=== PATIENT | male | born 1960 | race American Indian/Alaskan Native ===

== ENCOUNTER 2017-11-01 01:14 | Emergency (ER) | payer SELFPAY ==
[2017-11-01] MEDS ORDERED: BSS ONE (03:11)
[2017-11-01] MEDS ORDERED: BSS OU ONE (03:18)
[2017-11-01] MEDS ORDERED: TETRACAINE 0.5% OU PRN (04:36)
[2017-11-01] MEDS ORDERED: FUL-GLO OP ONE (04:36)
[2017-11-01] MEDS ORDERED: TETRACAINE 0.5% OU ONE (04:38)
[2017-11-01] MEDS ORDERED: BOOSTRIX IM ONE (05:18)
--- NOTE | 2017-11-01 05:21 | Emergency Department Report ---
Eye Injury/Foreign Body - HPI Duration: 1 Day Eye Location: Left Tetanus Status: Not up to Date Eye Symptoms: Eye Pain: Yes, Blurred Vision: Yes, Eye Redness: Yes, Grinding/ Hammering Metal: No, Used Eye Protection: No, Contact Lens Use: No, Recalls Injury: No, Photophobia: No Other History: This is a 57-year-old nontoxic, well nourished in appearance, no acute signs of distress presents to the ED with c/o of left eye redness and pain 1 day. Patient stated he was working with sheet [email or web address] and a piece of sheet rock landed on his left eye and patient started to itch her. They stated pain has increased. Patient denies any visual changes, blurry vision, fever, chills, nausea, vomiting, headache, stiff neck, numbness or tingling. Patient denies any drug allergies or significant past medical history. Patient denies being up-to-date with tetanus. ED Review of Systems ROS: Stated complaint: EYE PAIN Other details as noted in HPI Constitutional: denies: chills, fever Eyes: eye pain. denies: eye discharge, vision change ENT: denies: ear pain, throat pain Respiratory: denies: cough, shortness of breath, wheezing Cardiovascular: denies: chest pain, palpitations Endocrine: no symptoms reported Gastrointestinal: denies: abdominal pain, nausea, diarrhea Genitourinary: denies: urgency, dysuria Musculoskeletal: denies: back pain, joint swelling, arthralgia Skin: denies: rash, lesions Neurological: denies: headache, weakness, paresthesias Psychiatric: denies: anxiety, depression Hematological/Lymphatic: denies: easy bleeding, easy bruising ED Past Medical Hx - Past Medical History Previous Medical History?: Yes Hx Hypertension: Yes - Surgical History Past Surgical History?: Yes Additional Surgical History: hernia - Social History Smoking Status: Former Smoker Substance Use Type: Alcohol - Medications Home Medications: Home Medications Medication Instructions Recorded Confirmed Last Taken Type Ciprofloxacin 0.3% (Nf) 2 drops OD TID #1 drops 11/01/17 Unknown Rx [Ciprofloxacin OPTH] Eye Injury Exam - Exam General: Vital signs noted. No distress. Alert and acting appropriately. GENERAL: The patient is a well-developed, well-nourished in no apparent distress. Patient is alert and acting appropriately for age. Alert and oriented 3, no apparent distress, normal gait, atraumatic. HEENT: Head is normocephalic and atraumatic. PERRL, Extraocular muscles are intact. Pupils are equal, round, and reactive to light and accommodation. Nares appeared normal. Mouth is well hydrated and without lesions. Mucous membranes are moist. Posterior pharynx clear of any exudate or lesions. Mouth is well hydrated and without lesions. Tonsils not erythematous or swollen. Uvula midline. Tongue elevated. Mucous members are moist. Posterior pharynx clear, no exudate or lesions. Patent airways. NECK: Supple. No carotid bruits. No lymphadenopathy or thyromegaly.nontender. No meningitic signs are noted. LUNGS: Clear to auscultation. Non labor breathing. No intercostal retractions. Symmetrical with respiration, no wheezing, no rales, or crackles. HEART: Regular rate and rhythm without murmur, rubs or gallops. No reproducible. S1, S2 present, regular rate and rhythm without murmur, no rubs, no gallops. ABDOMEN: Soft, nontender, and nondistended. Positive bowel sounds. No hepatosplenomegaly was noted. No guarding or rebound tenderness, negative epigastric bruit. Negative psoas sign, negative wright sign, negative McBurneys sign EXTREMITIES: Without any cyanosis, clubbing, rash, lesions or edema. Peripheral pulses intact. Capillary refill less than 2 seconds. Full range of motion bilaterally. NEUROLOGIC: Cranial nerves II through XII are grossly intact. Alert and oriented x 3. Normal gait. Symmetrical strength and sensation. Reflexes 2+ throughout. Cerebellar testing normal. GCS score of 15. PSYCHIATRIC: Normal affect with no suicidal or homicidal ideations. - Visual Acuity Left Vision Acuity Degree: 20/30 Eye Exam: Neither Injection, Neither Chemosis, Neither Abnormal Pupil, Neither EOMI, Neither Eye Foreign Body, Neither Lid Foreign Body, Neither Mucous Discharge, Neither Purulent Discharge, Neither Cell/Flare (slit lamp), Neither Corneal Edema, Neither Photophobia Exam: Under Fontenot lamp, I used fluorescein and tetracaine to examine cornea for corneal abrasion or foreign body. There is slight corneal abrasion to the lateral cornea. No foreign body present. Right Vision Acuity Degree: 20/25 Bilateral Vision Acuity Degree: 20/25 ED Course Vital Signs 11/01/17 03:01 Temperature 97.7 F Pulse Rate 78 Respiratory 16 Rate Blood Pressure 193/108 O2 Sat by Pulse 98 Oximetry - Reevaluation(s) Reevaluation #1: 11/01/17 05:23 Patient is speaking in full sentences with no signs of distress noted. Critical care attestation.: If time is entered above; I have spent that time in minutes in the direct care of this critically ill patient, excluding procedure time. ED Disposition Clinical Impression: Corneal abrasion Qualifiers: Encounter type: initial encounter Laterality: left Qualified Code(s): S05.02XA - Injury of conjunctiva and corneal abrasion without foreign body, left eye, initial encounter Disposition: - TO HOME OR SELFCARE Is pt being admited?: No Does the pt Need Aspirin: No Condition: Stable Instructions: Corneal Abrasion (ED), Ciprofloxacin (Into the eye) Additional Instructions: Follow-up with a seat installer doctor in 24 hours or if symptoms worsen and continue return to emergency room as soon as possible. Prescriptions: Ciprofloxacin 0.3% (Nf) [Ciprofloxacin OPTH] 2 drops OD TID #1 drops Referrals: [facility] [Outside] - 3-5 Days PRIMARY CARE, [Referring] - 3-5 Days MICHELLE LE MD [Staff Physician] - 24 Hours Forms: Work/School Release Form(ED)
[2017-11-01] MEDS ORDERED: CATAPRES PO ONE (05:31)
[2017-11-01 06:29] VITALS: BP 150/87
== END 2017-11-01 06:34 | disposition home or self-care (01) ==
LOC: ED 01:14
DX: S05.02XA Injury of conjunctiva and corneal abrasion without foreign body, left eye, initial encounter (principal); I10 Essential (primary) hypertension; Z87.891 Personal history of nicotine dependence; W20.8XXA Other cause of strike by thrown, projected or falling object, initial encounter; Y93.89 Activity, other specified; Y92.89 Other specified places as the place of occurrence of the external cause; Y99.8 Other external cause status
CPT/HCPCS: 90471; 90715; 99283